=== PATIENT | male | born 1985 ===

== ENCOUNTER 2021-02-24 09:54 | Outpatient (CLI) | payer OTHER | END 2021-02-24 09:57 | disposition home or self-care (01) | LOC: NUCLEAR 09:54 | DX: I42.9 Cardiomyopathy, unspecified (principal) ==

== ENCOUNTER 2023-10-31 14:26 | Outpatient (CLI) | payer OTHER | END 2023-10-31 14:38 | disposition home or self-care (01) | LOC: RAD 14:26 | PROVIDERS: ATTEND Internal Medicine Cardiovascular Disease | DX: M25.561 Pain in right knee (principal); E11.9 Type 2 diabetes mellitus without complications; E03.8 Other specified hypothyroidism ==